=== PATIENT | female | born 1950 ===

== ENCOUNTER 2017-05-24 10:30 | Emergency (ER) | payer MEDICARE, OTHER ==
[~2017-05-24] VITALS: Ht 154.9 cm; Wt 63.5 kg
[~2017-05-24 10:30] MED LIST: ACETAMIN; ALBU90OI INH; ALPR.5 PO; AMOCLA500 PO; AZELASTINE137 MCG/0. NS; Abilify2 MG; CEFP500 PO; CHLO500; CHLO500 PO; CLON.5 PO; CYCL10; DIAZ2 PO; DIAZ5; DIPH50 PO; DUEXIS 800-26.1 EACH PO; ESTR2 PO; FEXPSEER PO; FURO20 PO; Flovent Diskus50 MCG; Furosemide20 MG; HYDHOMSY PO; INSLIS75I; LISHYD2025 PO; LOPE2C PO; LORA.5 PO; Mucinex600 MG PO; NEOPOLDEXS BOTHEYES; Naprosyn500 MG PO; Norco 5-325 Ta1 EACH PO; Norflex100 MG; OXYACE5T PO; Orphenadrine C100 MG PO; PRAM.125 PO; PROM25 PO; Prilosec Otc20 MG PO; QUET25 PO; RANI150 PO; TIZANIDINE HCL4 MG PO; TRAMAD; Toviaz8 MG; Toviaz8 MG PO; Trazodone HCl300 MG PO; VENL75ER; VENL75ER PO; Valium5 MG PO; Venlafaxine HCl75 MG PO; Zithromax250 MG PO
[2017-05-24 12:52] LABS: BASOPHILS ABSOLUTE AUTO 0.03 K/mm3 (0.00-0.23); BASOPHILS PERCENT AUTO 0 % (0-2); EOSINOPHILS ABSOLUTE AUTO 0.23 K/mm3 (0.00-0.68); EOSINOPHILS PERCENT AUTO 3 % (0-6); Hematocrit 41.1 % (33.0-51.0); IMMATURE GRAN ABSOLUTE AUTO 0.02 K/mm3 (0.00-0.10); IMMATURE GRAN PERCENT AUTO 0 % (0-1); LYMPHOCYTES ABSOLUTE AUTO 1.65 K/mm3 (0.84-5.20); LYMPHOCYTES PERCENT AUTO 23 % (21-46); MONOCYTES PERCENT AUTO 11 % (4-13); Mean Corpuscular HGB 31.5 pg (26.0-34.0); Mean Corpuscular HGB Conc 34.1 g/dL (31.5-36.5); Mean Corpuscular Volume 93 fL (80-100); NEUTROPHILS PERCENT AUTO 62 % (41-73); Platelet Count 259 K/mm3 (150-400); RDW Coefficient Variation 12.8 % (11.7-14.2); RDW Standard Deviation 43.5 fL (35.1-46.3); Red Blood Cell Count 4.44 M/mm3 (3.80-5.20); White Blood Cell Count 7.13 K/mm3 (4.00-11.30)
[2017-05-24 13:18] LABS: Alanine Aminotransfer (ALT/SGP 46 U/L (12-78); Albumin, Blood 3.5 g/dL (3.4-5.0); Albumin/Globulin Ratio 0.8 (0.8-1.8); Alk Phos 86 U/L (50-136); Anion Gap 5 mmol/L (6-16); Aspartate Aminotrans (AST/SGOT 31 U/L (12-37); Bilirubin, Total 0.3 mg/dL (0.1-1.0); Blood Urea Nitrogen 22 mg/dL (8-24); Bun/Creatinine Ratio 32.4 (12.0-20.0); CO2, Blood 30 mmol/L (21-32); Calcium, Blood 9.2 mg/dL (8.5-10.1); Chloride, Blood 100 mmol/L (98-108); Creatinine, Blood 0.68 mg/dL (0.40-1.00); Globulin, Blood 4.4 g/dL (2.2-4.0); Glomerular Filtration Rate >60 (60-); Glucose, Blood 111 mg/dL (70-99); Potassium, Blood 3.9 mmol/L (3.5-5.5); Sodium, Blood 135 mmol/L (136-145); Total Protein, Blood 7.9 g/dL (6.4-8.2)
== END 2017-05-24 12:35 | disposition left against medical advice (07) ==
LOC: ER 10:30
PROVIDERS: Physician Assistant
DX: Z53.21 Procedure and treatment not carried out due to patient leaving prior to being seen by health care provider (principal)
CPT/HCPCS: 80053; 85025; 99283

== ENCOUNTER 2018-05-25 13:56 | Emergency (ER) | payer MEDICARE, OTHER ==
[~2018-05-25] VITALS: Ht 152.4 cm; Wt 63.5 kg
[2018-05-25] MEDS ORDERED: CEPH500 PO (14:43)
== END 2018-05-25 14:49 | disposition home or self-care (01) ==
LOC: ER 13:56
DX: S61.412A Laceration without foreign body of left hand, initial encounter (principal); W26.0XXA Contact with knife, initial encounter; Z88.8 Allergy status to other drugs, medicaments and biological substances; Z79.899 Other long term (current) drug therapy
CPT/HCPCS: 90471; 90714; 99283

== ENCOUNTER 2018-06-10 15:24 | Emergency (ER) | payer MEDICARE, OTHER ==
[~2018-06-10] VITALS: Ht 157.5 cm; Wt 65.8 kg
[~2018-06-10 15:24] MED LIST changes: +CEPH500 PO
[2018-06-10] MEDS ORDERED: PRED20 PO (16:35)
[2018-06-10] MEDS ORDERED: IBUP800 PO (16:35)
== END 2018-06-10 16:50 | disposition home or self-care (01) ==
LOC: ER 15:24
DX: J02.9 Acute pharyngitis, unspecified (principal); J20.9 Acute bronchitis, unspecified; Z88.8 Allergy status to other drugs, medicaments and biological substances; Z79.899 Other long term (current) drug therapy
CPT/HCPCS: 71046; 87081; 87430; 96372; 99283-25; J1885

== ENCOUNTER 2018-08-28 22:18 | Emergency (ER) | payer MEDICARE, OTHER ==
[~2018-08-28] VITALS: Ht 157.5 cm; Wt 65.3 kg
[~2018-08-28 22:18] MED LIST changes: +IBUP800 PO; +PRED20 PO
[2018-08-28] MEDS ORDERED: Phentermine HCl30 MG (23:23)
[2018-08-28] MEDS ORDERED: DIAZ5 (23:30)
[2018-08-28] MEDS ORDERED: PRAMIPEXOLE D0.25 MG (23:31)
[2018-08-28] MEDS ORDERED: BUME1 (23:31)
[2018-08-28] MEDS ORDERED: IBUP600 PO (23:34)
== END 2018-08-28 23:40 | disposition home or self-care (01) ==
LOC: ER 22:18
DX: S09.90XA Unspecified injury of head, initial encounter (principal); S60.212A Contusion of left wrist, initial encounter; Z88.6 Allergy status to analgesic agent; Z88.8 Allergy status to other drugs, medicaments and biological substances; Z91.048 Other nonmedicinal substance allergy status; Z79.52 Long term (current) use of systemic steroids; W22.8XXA Striking against or struck by other objects, initial encounter
CPT/HCPCS: 29125; 73110; 99283-25; L3917

== ENCOUNTER 2019-04-03 18:55 | Observation (INO) | payer MEDICARE, OTHER ==
[~2019-04-03] VITALS: Ht 157.5 cm; Wt 65.6 kg
[~2019-04-03 18:55] MED LIST changes: +BUME1; +IBUP600 PO; +PRAMIPEXOLE D0.25 MG; +Phentermine HCl30 MG; -Toviaz8 MG
[2019-04-03 19:25] LABS: Calcium, Ionized (POC) 0.87 mmol/L (1.10-1.46); Chloride (POC) 104 mmol/L (98-108); Creatinine (POC) 0.4 mg/dL (0.6-1.0); Glucose (ISTAT POC) 79 mg/dL (70-99); Hemoglobin (POC) 13.9 g/dL (12.0-16.0); Potassium (POC) 5.9 mmol/L (3.5-5.5); Sodium (POC) 133 mmol/L (135-148); Total CO2 (POC) 24 mmol/L (21-32)
[2019-04-03 19:31] LABS: BASOPHILS ABSOLUTE AUTO 0.07 K/mm3 (0.00-0.23); BASOPHILS PERCENT AUTO 1 % (0-2); EOSINOPHILS ABSOLUTE AUTO 0.24 K/mm3 (0.00-0.68); EOSINOPHILS PERCENT AUTO 2 % (0-6); Hemoglobin 14.6 g/dL (11.5-16.0); IMMATURE GRAN ABSOLUTE AUTO 0.04 K/mm3 (0.00-0.10); IMMATURE GRAN PERCENT AUTO 0 % (0-1); LYMPHOCYTES ABSOLUTE AUTO 2.19 K/mm3 (0.84-5.20); LYMPHOCYTES PERCENT AUTO 20 % (21-46); MONOCYTES ABSOLUTE AUTO 1.14 K/mm3 (0.16-1.47); MONOCYTES PERCENT AUTO 10 % (4-13); Mean Corpuscular HGB 30.7 pg (26.0-34.0); Mean Corpuscular HGB Conc 33.2 g/dL (31.5-36.5); Mean Corpuscular Volume 92 fL (80-100); Mean Platelet Volume 9.9 fL (9.1-12.4); NEUTROPHILS ABSOLUTE AUTO 7.48 K/mm3 (1.96-9.15); NEUTROPHILS PERCENT AUTO 67 % (41-73); Platelet Count 258 K/mm3 (150-400); RDW Coefficient Variation 12.4 % (11.7-14.2); RDW Standard Deviation 42.5 fL (35.1-46.3); Red Blood Cell Count 4.76 M/mm3 (3.80-5.20); White Blood Cell Count 11.16 K/mm3 (4.00-11.30)
[2019-04-03 19:35] LABS: Calcium, Ionized (POC) 1.13 mmol/L (1.10-1.46); Chloride (POC) 97 mmol/L (98-108); Creatinine (POC) 0.7 mg/dL (0.6-1.0); Glucose (ISTAT POC) 92 mg/dL (70-99); Potassium (POC) 4.7 mmol/L (3.5-5.5); Sodium (POC) 133 mmol/L (135-148); Total CO2 (POC) 30 mmol/L (21-32)
[2019-04-03 19:49] LABS: Alanine Aminotransfer (ALT/SGP 52 U/L (12-78); Albumin, Blood 3.7 g/dL (3.4-5.0); Albumin/Globulin Ratio 0.9 (0.8-1.8); Alk Phos 84 U/L (50-136); Anion Gap 6 mmol/L (6-16); Aspartate Aminotrans (AST/SGOT 34 U/L (12-37); Bilirubin, Total 0.3 mg/dL (0.1-1.0); Blood Urea Nitrogen 24 mg/dL (8-24); Bun/Creatinine Ratio 34.8 (12.0-20.0); CO2, Blood 28 mmol/L (21-32); Calcium, Blood 9.1 mg/dL (8.5-10.1); Chloride, Blood 98 mmol/L (98-108); Creatinine, Blood 0.69 mg/dL (0.40-1.00); Ethanol (Alcohol), Blood, Med <3 mg/dL; Globulin, Blood 4.1 g/dL (2.2-4.0); Glomerular Filtration Rate >60 (60-); Glucose, Blood 87 mg/dL (70-99); Potassium, Blood 4.5 mmol/L (3.5-5.5); Salicylate <1.7 mg/dL (2.8-20.0); Sodium, Blood 132 mmol/L (136-145); Total Protein, Blood 7.8 g/dL (6.4-8.2)
[2019-04-03] MEDS ORDERED: CLON.1 PO (19:52)
[2019-04-03] MEDS ORDERED: TEMA15 PO (19:53)
[2019-04-03] MEDS ORDERED: HYDPAM25 (19:53)
[2019-04-03 19:55] LABS: Acetaminophen, Random <2.0 ug/mL (10.0-30.0)
[2019-04-03 20:05] LABS: U Amphetamine Screen Not Detected; U Barbituate Screen Not Detected; U Benzodiazapine Screen DETECTED; U Buprenorphine Screen Not Detected; U Cannabinoids Screen Not Detected; U Cocaine Screen Not Detected; U Methadone Screen Not Detected; U Methamphetamine Screen Not Detected; U Opiates Screen Not Detected; U Oxycodone Screen Not Detected; U Phencyclidine Screen Not Detected; U Propoxyphene Screen Not Detected
[2019-04-03 20:32] LABS: Source, Urine Catheter
[2019-04-03 20:36] LABS: Bilirubin, Urine Neg (Neg); Blood, Urine Neg (Neg); Glucose Qualitative, Urine Neg (Neg); Ketones, Urine Neg (Neg); Leukocyte Esterase, Urine Neg (Neg); Nitrite, Urine Neg (Neg); Protein, Urine Neg (Neg); Specific Gravity, Urine 1.005 (1.003-1.022); Urobilinogen, Urine NORM (Normal)
[2019-04-03 20:42] LABS: Appearance, Urine Clear (Clear); Color, Urine Yellow (P-Yellow)
[2019-04-03] MEDS ORDERED: Mirapex0.25 MG PO (21:02)
[2019-04-03] MEDS ORDERED: VENLAFAXINE HCL75 MG PO (21:02)
[2019-04-03] MEDS ORDERED: FUROSEMIDE20 MG PO (21:03)
[2019-04-03] MEDS ORDERED: HYDHCL25 PO (21:03)
[2019-04-04 01:09] LABS: Anion Gap 5 mmol/L (6-16); Blood Urea Nitrogen 17 mg/dL (8-24); Bun/Creatinine Ratio 27.8 (12.0-20.0); CO2, Blood 26 mmol/L (21-32); Calcium, Blood 8.1 mg/dL (8.5-10.1); Chloride, Blood 107 mmol/L (98-108); Creatinine, Blood 0.61 mg/dL (0.40-1.00); Glomerular Filtration Rate >60 (60-); Glucose, Blood 93 mg/dL (70-99); Potassium, Blood 3.6 mmol/L (3.5-5.5); Sodium, Blood 138 mmol/L (136-145)
--- NOTE | 2019-04-04 01:53 | NUR ---
ADMIT: PT UP TO ROOM FROM ED. PT SOMNOLENT AT ARRIVAL BUT ABLE TO WAKE FOR SHORT PERIODS TO ANSWER QUESTIONS. LUNG SOUNDS SLIGHTLY WHEEZY. SATTING >90% ON SL NC. NSR, HYPERTENSIVE WITH SBP IN THE 150S. HR IN THE 70S. BEDOLLA IS IN PLACE DRAINING CLEAR YELLOW URINE. 20G TO L HAND AND 20G IN R WRIST. R WRIST IV INFUSING NS AT 200ML/HR/. L HAND IS SL. PT IS CURRENTLY RESTING AND IS ON A 1:1 WITH A SITTER.
[2019-04-04 05:33] LABS: Anion Gap 5 mmol/L (6-16); Blood Urea Nitrogen 14 mg/dL (8-24); Bun/Creatinine Ratio 21.9 (12.0-20.0); CO2, Blood 26 mmol/L (21-32); Calcium, Blood 8.1 mg/dL (8.5-10.1); Chloride, Blood 108 mmol/L (98-108); Creatinine, Blood 0.64 mg/dL (0.40-1.00); Glomerular Filtration Rate >60 (60-); Glucose, Blood 95 mg/dL (70-99); Magnesium, Blood 1.8 mg/dL (1.6-2.4); Potassium, Blood 3.9 mmol/L (3.5-5.5); Sodium, Blood 139 mmol/L (136-145)
--- NOTE | 2019-04-04 06:21 | NUR ---
SHIFT SUMMARY: PT SOMNOLENT. WILL WAKE TO NAME. LUNG SOUNDS WHEEZY SPO2 >90% ON 2L NC. PT HYPERTENSIVE WITH SBP IN THE 150S HR 60-70S, IN SR. BEDOLLA IN PLACE DRAINING CLEAR YELLOW FLUID. 20G IVS TO L HAND AND R WRIST. NS INFUSING AT 200MLS/HR. BOWEL TONES X 4. NO BM THIS SHIFT. SITTER WITH PT ON 1:1.
--- NOTE | 2019-04-04 07:50 | NUR ---
ASSUMED CARE / DR SPENCER: REPORT RECEIVED FROM LINDA De Leon RN & GEOVANNA Lai RN. ASSUMED CARE OF THIS PT AT APPROX 0700. ON ASSESSMENT, THE PT IS RESTING QUIETLY. SHE AWAKENS EASILY TO VERBAL STIMULI & ANSWERS QUESTIONS APPROPRIATELY. SHE IS VERY FORGETFUL & HAVING A HARD TIME REMEMBERING THINGS SUCH HER HUSBANDS PHONE NUMBER. PT ON 2L NC W/ O2 SATS > 92%. MONITOR SHOWS SR W/ HR 60s, BP STABLE. NO GI/ COMPLAINTS, BEDOLLA PATENT/ DRAINING. SKIN OVERALL CDI. PT CONTINUES TO EXPRESS FEELINGS OF SADNESS & DESPAIR THIS MORNING, 1:1 SITTER IS AT BEDSIDE. PROVIDER IN ROOM TO SEE PT. HE STS THAT IF DR TORRES CANNOT SEE THE PT TODAY, WE SHOULD CONSULT TELEPSYCH INSTEAD. DIET ORDERS PLACED, NO OTHER CHANGES AT THIS TIME. WILL CONTINUE TO MONITOR & UPDATE NEEDED.
--- NOTE | 2019-04-04 08:55 | NUR ---
SUICIDAL IDEATION: THE PT IS STATING THAT SHE WANTS TO GO HOME, IT IS DISCUSSED THAT SHE WILL NEED TO STAY UNTIL DR TORRES HAS AT LEAST SEEN HER. SI IS DICUSSED & THE PT STS THAT SHE FEELS NO SUICIDAL IDEATION AT THIS TIME, BUT THEN STS "I REALLY THOUGHT I WOULD BE RIGHT NOW, I WISH I WAS." 1:1 SITTER REMAINS AT BEDSIDE. WILL CONTINUE TO MONITOR & UPDATE NEEDED.
--- NOTE | 2019-04-04 10:24 | NUR ---
SAFETY PLAN / POISON CONTROL: KOMAL AT BEDSIDE COMPLETING SAFETY PLAN W/ PT CURRENTLY. ALFRED RN FROM POISON CONTROL HAS CALLED FOR UPDATE REGARDING THIS PT. THEY HAVE BEEN PROVIDED W/ REQUESTED INFO. SHE STS THAT THE PT IS MEDICALLY CLEARED FROM THEIR STANDPOINT & THAT THEY WILL BE CLOSING HER CHART. ANY COMPLICATIONS THAT WERE LIKLEY TO OCCUR SHOULD HAVE HAPPENED WITHIN 8-12 HRS AFTER MED INGESTION & WE ARE NOW OUT OF THAT TIME FRAME INCIDENT OCCURED AT 1730 YESTERDAY PER . WILL NOTIFY PROVIDER & UPDATE NEEDED.
--- NOTE | 2019-04-04 10:53 | NUR ---
DR SPENCER: RETURN CALL FROM PROVIDER, INFORMED HIM OF POISON CONTROL's INPUT REGARDING PT BEING CLEARED FROM MEDICAL STANDPOINT. HE STS OKAY TO MAKE MED STATUS, ORDERS PLACED. WILL CONTINUE TO MONITOR & UPDATE NEEDED.
--- NOTE | 2019-04-04 11:25 | NUR ---
ASSUMED CARE RECEIVED REPORT FROM SOTO THIBODEAUX. PT IS IN HIGH RISK SUICIDE PRECAUTIONS WITH A SITTER. CURRENTLY DR NARANJO IS IN ROOM ALONE WITH PATIENT DOING HIS EVAL.
--- NOTE | 2019-04-04 11:59 | NUR ---
Safety Plan complete. Met with patient in ICU 9. Pleasant and able to engage in conversation. She presented somewhat confused as to what had happened, but was able to engage more as interview progressed. 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 She reports she has been seen for depression for past 8 years since her 19y/o grandson was killed i car accident. she has not been "so far down in the barrell" than she was yesterday. She felt 'like a failure". 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 She drinks 3-4 Ensure per day as "recommended by Dr. Randall". She reports seeing a psychiatrist, Dr. Cesar Huffman--but describes him more as a therapist. She has standing appoinment every 2 weeks. Has had had several losses recntly--dog of 13 yers put to sleep month ago or so, interaction with her daughter "hurt her feelings" at the [employer] parade. She felt she had dissappointed her yesterday, which prompted her to take pills. She reports no previous suicid attempts. She states her taking the pills was dumb. She has called Dr. Huffman in the past when she has had emergency emotional issues, but fdid not know why she did not this time. She was able to identify positives in her life and engage in the safety plan She was informed she is on involuntary hold, and would likely be seen by psychiatrist, Dr. Garnett. Marian Velásquez M.Ed., [facility]
--- NOTE | 2019-04-04 12:26 | NUR ---
MARCELLA INFORMED ME THAT HE THINKS HE WOULD LIKE HER TO STAY IN THE HOSPITAL ONE MORE DAY TO FINISH OUT HER HOLD, BUT DOES NOT BELIEVE SHE IS ACTIVELY SUICIDAL. HE CHANGED HER TO LOW RISK, AND TO BE ON CENTRAL MONITORING. HE ALSO STATED THAT HE WOULD DISCUSS HER MED REC WITH DR SPENCER.
--- NOTE | 2019-04-04 13:37 | NUR ---
DICONTINUED BEDOLLA CATHETER @ 0617
--- NOTE | 2019-04-04 15:44 | NUR ---
SHIFT SUMMARY PT LEFT ICU AT 1543 TO MEDICAL FLOOR ROOM 346. SHE LEFT ALERT AND ORIENTED X 3. SHE HAD STABLE VITALS. SHE WAS ON 2L NC, BECAUSE SHE WAS JUST ASLEEP PRIOR TO TRANSFER. SHE HAS BEEN VOIDING ADEQUETLY. PT COMPLAINS OF NO PAIN OR DISCOMFORT SINCE LEG CRAMPS, THAT WERE TREATED WITH MAGNESIUM OXIDE.
--- NOTE | 2019-04-04 17:34 | NUR ---
SHIFT SUMMARY PT A TRANSFER FROM ICU THIS EVENING. PT IS ALERT AND ORIENTED TO ROOM AND CALL LIGHT. PT REQUESTING MEDICATION FOR OVER ACTIVE BLADDER. THIS RN TALKED WITH DR. SPENCER AND DITROPAN WAS ORDERED. PT HAS NO FURTHER COMPLAINTS. PT IS CALM, FRIENDLY, BUT VERY IMPULSIVE AND DOES NOT CALL WHEN NEEDING TO GET UP. NO ACUTE CHANGES AT THIS TIME. CALL LIGHT IN REACH. BED ALARM ON FOR FALL RISK SAFETY. WILL CONTINUE TO MONITOR AND REPORT TO ONCOMING RN.
--- NOTE | 2019-04-05 05:39 | NUR ---
SHIFT SUMMARY PT HAS RESTED FOR A GOOD MAJORITY OF THE SHIFT. DITROPIN GIVEN HS FOR PT URGENCY. PT HAS URGENCY, FREQUENCY, AND INCONTINENCE. ATTENDS NOW IN PLACE. SHE AMBULATES WELL TO THE BSC WITH SBA. PT A/OX4, BUT FORGETFUL AND CAN BE IMPULSIVE. BED ALARM IN PLACE FOR SAFETY. PT ON LOW RISK SI PRECAUTIONS AT THIS TIME, ON CAMERA. SHE DENIES SUICIDAL IDEATION THIS SHIFT. NO ACUTE CHANGES TO REPORT. WILL CONTINUE TO MONITOR AND REPORT TO ONCOMING RN.
--- NOTE | 2019-04-05 07:44 | NUR ---
SHE IS AWAKENED FOR ASSESSMENT. SHE DENIES ANY SUICIDAL THOUGHTS DURING THE NIGHT OR THIS MORNING. SHE IS SLEEPY AND CALM. ANSWERS THAT HER APPETITE WAS GOOD AT [employer] LAST NIGHT BUT DOESN'T KNOW ABOUT THIS MORNING YET. DENIES PAIN OR NUMBNESS ANYWHERE BUT SAYS SHE GETS LEG CRAMPS SOMETIMES.
--- NOTE | 2019-04-05 13:33 | NUR ---
Visited patient. She and have set up appoinment with her therapist Dr. Huffman immediately upon DC from hospital
[2019-04-05] MEDS ORDERED: QUET25 PO (14:17)
--- NOTE | 2019-04-05 15:49 | NUR ---
DISCHARGED TO HOME WITH HER AT 1508. INSTRUCTIONS WERE GIVEN TO HER IN THE PRESENCE OF HER . SHE HAS HER BELONGINGS. REMOVED THE SUICIDAL PRECAUTIONS JUST BEFORE 1130 THIS MORNING. CAMERA WAS TURNED OFF SOON AFTER. SHE HAD BEEN UPSET ABOUT THE LOSS OF HER MOTHER AND HER GRANDSON. SHE SAYS SHE KNOWS NOW IT IS NOT HER TIME TO . SHE IS HAPPY TO GO HOME AND HER IS HAPPY TO HAVE HER. HER PSYCHOLOGIST SID MAKI CALLED ME BACK WITH THE SOONEST APPT. HE HAS, NEXT MONDAY. SHE HAS THE INFOIN HER DC INSTRUCTIONS.
== END 2019-04-05 15:08 | disposition home or self-care (01) ==
LOC: ER 18:55 → ICUW 18:56 → MEDS 18:56 → ERHOLD 18:56 → ICUW 23:54 → MEDS 04-04 15:46
PROVIDERS: Physician Assistant; ADMIT Hospitalist
DX: T42.4X2A Poisoning by benzodiazepines, intentional self-harm, initial encounter (principal); G92 Toxic encephalopathy; F33.3 Major depressive disorder, recurrent, severe with psychotic symptoms; F41.9 Anxiety disorder, unspecified; E87.1 Hypo-osmolality and hyponatremia; E87.5 Hyperkalemia; Z88.4 Allergy status to anesthetic agent; Z88.6 Allergy status to analgesic agent; Z88.8 Allergy status to other drugs, medicaments and biological substances; Z91.041 Radiographic dye allergy status; Z79.899 Other long term (current) drug therapy; Z90.710 Acquired absence of both cervix and uterus; Y92.019 Unspecified place in single-family (private) house as the place of occurrence of the external cause
CPT/HCPCS: 36415; 51702; 80047; 80048; 80053; 81003; 83735; 85014; 85025; 93005; 93010; 96360-59; 96361; 96361-59; 96372; 99285-25; A9270; G0378; G0480; J1650; J7030

== ENCOUNTER 2019-11-04 11:48 | Inpatient (IN) | payer MEDICARE, OTHER ==
[~2019-11-04] VITALS: Ht 157.5 cm; Wt 72.5 kg
[~2019-11-04 11:48] MED LIST changes: +CLON.1 PO; +FUROSEMIDE20 MG PO; +HYDHCL25 PO; +HYDPAM25; +Mirapex0.25 MG PO; +TEMA15 PO; +VENLAFAXINE HCL75 MG PO
[2019-11-04 12:55] LABS: BASOPHILS ABSOLUTE AUTO 0.05 K/mm3 (0.00-0.23); BASOPHILS PERCENT AUTO 0 % (0-2); EOSINOPHILS ABSOLUTE AUTO 0.07 K/mm3 (0.00-0.68); EOSINOPHILS PERCENT AUTO 1 % (0-6); Hemoglobin 14.4 g/dL (11.5-16.0); IMMATURE GRAN ABSOLUTE AUTO 0.09 K/mm3 (0.00-0.10); IMMATURE GRAN PERCENT AUTO 1 % (0-1); LYMPHOCYTES ABSOLUTE AUTO 0.91 K/mm3 (0.84-5.20); LYMPHOCYTES PERCENT AUTO 6 % (21-46); MONOCYTES ABSOLUTE AUTO 1.48 K/mm3 (0.16-1.47); MONOCYTES PERCENT AUTO 10 % (4-13); Mean Corpuscular HGB 30.8 pg (26.0-34.0); Mean Corpuscular HGB Conc 34.3 g/dL (31.5-36.5); Mean Corpuscular Volume 90 fL (80-100); Mean Platelet Volume 9.8 fL (9.1-12.4); NEUTROPHILS ABSOLUTE AUTO 12.34 K/mm3 (1.96-9.15); NEUTROPHILS PERCENT AUTO 83 % (41-73); Platelet Count 202 K/mm3 (150-400); RDW Coefficient Variation 12.5 % (11.7-14.2); Red Blood Cell Count 4.67 M/mm3 (3.80-5.20); White Blood Cell Count 14.94 K/mm3 (4.00-11.30)
[2019-11-04 13:15] LABS: Alanine Aminotransfer (ALT/SGP 32 U/L (12-78); Albumin, Blood 3.6 g/dL (3.4-5.0); Albumin/Globulin Ratio 0.8 (0.8-1.8); Alk Phos 103 U/L (50-136); Anion Gap 5 mmol/L (6-16); Aspartate Aminotrans (AST/SGOT 27 U/L (12-37); Bilirubin, Total 0.6 mg/dL (0.1-1.0); Blood Urea Nitrogen 13 mg/dL (8-24); Bun/Creatinine Ratio 21.9 (12.0-20.0); CO2, Blood 27 mmol/L (21-32); Calcium, Blood 8.6 mg/dL (8.5-10.1); Chloride, Blood 93 mmol/L (98-108); Creatinine, Blood 0.59 mg/dL (0.40-1.00); Globulin, Blood 4.8 g/dL (2.2-4.0); Glomerular Filtration Rate >60 (60-); Glucose, Blood 130 mg/dL (70-99); Potassium, Blood 4.2 mmol/L (3.5-5.5); Sodium, Blood 125 mmol/L (136-145); Total Protein, Blood 8.4 g/dL (6.4-8.2); Troponin I 0.062 ng/mL (0.000-0.040)
[2019-11-04] MEDS ORDERED: ALLEGRA-D 12 H1 EACH PO (13:43)
[2019-11-04] MEDS ORDERED: HYDHCL25 PO (13:43)
[2019-11-04] MEDS ORDERED: CLON.1 PO (13:43)
[2019-11-04] MEDS ORDERED: VENLAFAXINE ER 75MG (13:43)
[2019-11-04] MEDS ORDERED: Diethylpropion25 MG PO (13:44)
[2019-11-04] MEDS ORDERED: PRAMIPEXOLE D0.25 M1 PO (13:44)
[2019-11-04] MEDS ORDERED: VENL75ER PO (15:33)
--- NOTE | 2019-11-04 16:49 | NUR ---
Echocardiogram completed.
[2019-11-04 17:18] LABS: Source, Urine Clean Catch
[2019-11-04 17:22] LABS: Appearance, Urine Clear (Clear); Bilirubin, Urine Neg (Neg); Blood, Urine Neg (Neg); Color, Urine Yellow (P-Yellow); Glucose Qualitative, Urine Neg (Neg); Ketones, Urine 1+ (Neg); Leukocyte Esterase, Urine Neg (Neg); Nitrite, Urine Neg (Neg); Protein, Urine 1+ (Neg); Urobilinogen, Urine NORM (Normal)
--- NOTE | 2019-11-04 23:36 | NUR ---
PROVIDER CALLED SOLOMON CERDA REGARDING PT STATING CHEST TIGHTNESS AND DIFFICULTY BREATHING. STATES HAVING HAD ALBUTEROL TREATMENTS IN THE PAST MULTIPLE TIMES. PROVIDER ORDERES Q2PRN ALBUTEROL UPDRAFTS. RT TO ROOM TO ADMINISTER.
[2019-11-05 01:13] LABS: BASOPHILS ABSOLUTE AUTO 0.04 K/mm3 (0.00-0.23); BASOPHILS PERCENT AUTO 0 % (0-2); EOSINOPHILS PERCENT AUTO 1 % (0-6); Hematocrit 38.9 % (33.0-51.0); Hemoglobin 12.6 g/dL (11.5-16.0); IMMATURE GRAN ABSOLUTE AUTO 0.05 K/mm3 (0.00-0.10); IMMATURE GRAN PERCENT AUTO 0 % (0-1); LYMPHOCYTES ABSOLUTE AUTO 0.86 K/mm3 (0.84-5.20); LYMPHOCYTES PERCENT AUTO 7 % (21-46); MONOCYTES PERCENT AUTO 11 % (4-13); Mean Corpuscular HGB 30.2 pg (26.0-34.0); Mean Corpuscular HGB Conc 32.4 g/dL (31.5-36.5); Mean Corpuscular Volume 93 fL (80-100); Mean Platelet Volume 9.9 fL (9.1-12.4); NEUTROPHILS ABSOLUTE AUTO 10.78 K/mm3 (1.96-9.15); NEUTROPHILS PERCENT AUTO 81 % (41-73); Platelet Count 178 K/mm3 (150-400); RDW Standard Deviation 44.6 fL (35.1-46.3); Red Blood Cell Count 4.17 M/mm3 (3.80-5.20); White Blood Cell Count 13.23 K/mm3 (4.00-11.30)
[2019-11-05 01:32] LABS: Alanine Aminotransfer (ALT/SGP 32 U/L (12-78); Albumin, Blood 2.7 g/dL (3.4-5.0); Albumin/Globulin Ratio 0.7 (0.8-1.8); Alk Phos 89 U/L (50-136); Anion Gap 5 mmol/L (6-16); Aspartate Aminotrans (AST/SGOT 24 U/L (12-37); Bilirubin, Total 0.5 mg/dL (0.1-1.0); Blood Urea Nitrogen 12 mg/dL (8-24); Bun/Creatinine Ratio 20.5 (12.0-20.0); CO2, Blood 22 mmol/L (21-32); Chloride, Blood 105 mmol/L (98-108); Creatinine, Blood 0.58 mg/dL (0.40-1.00); Globulin, Blood 4.1 g/dL (2.2-4.0); Glomerular Filtration Rate >60 (60-); Glucose, Blood 132 mg/dL (70-99); Potassium, Blood 3.7 mmol/L (3.5-5.5); Sodium, Blood 132 mmol/L (136-145); Total Protein, Blood 6.8 g/dL (6.4-8.2)
--- NOTE | 2019-11-05 04:31 | NUR ---
END OF SHIFT SUMMARY NO ACUTE CHANGES THIS SHIFT. VSS. NS INFUSING, SEE EMAR. LUNGS WITH COARSE TO FINE CRACKLES BILATERALLY. PT HAS REQUIRED RT TREATMENT THIS SHIFT FOR "TIGHTNESS" IN LUNGS PER PT. PT HAS BEEN PREDOMINANTLY INDEPENDENT IN ROOM. HAS DENIED CP/PRESSURE T/O SHIFT. NSR 70'S. PT HAS BEEN RESTING QUIETLY IN ROOM T/O MOST OF SHIFT. WILL CONTIONUE TO MONITOR UNTIL SHIFT CHANGE.
--- NOTE | 2019-11-05 04:38 | NUR ---
EMAR NS FLUIDS RUNNING AT RATE ORDERED FOR MAINTENCE RATE AT BEGINNING OF SHIFT . IT WAS NOTED THAT DAY RN CHARTED THIS MEDICATION AT 1827 UNDER THE WO BOLUS ORDER WHEN IT SHOULD BE UNDER THE 100MLS/HR ORDER. THIS BAG FINISHED ON THIS SHIFT WAS NOT RAN AT A BOLUS RATE BUT AT THE CORRECT RATE ORDERED. SEE EMAR.
--- NOTE | 2019-11-05 07:58 | NUR ---
PT RESTING IN BED, REPORTS INCREASED ANXUETY AND REQUESTING ADDITIONAL ANXIETY MEDICATIONS. STATES INCREASED ANXIETY FROM "ALL THE EXTRA NOISE". TOOK PATIENT FOR WALK THIS AM. NOITIFIED DR CAMPOVERDE, NEW ORDERS ENTERED. WILL CONTINUE TO MONITOR.
[2019-11-05] MEDS ORDERED: ACET325 PO (11:42)
[2019-11-05] MEDS ORDERED: GUAI600T33 PO (11:43)
[2019-11-05] MEDS ORDERED: AZIT250 PO (11:43)
[2019-11-05] MEDS ORDERED: CEFD300 PO (11:45)
[2019-11-05] MEDS ORDERED: CVS PROBIOTIC1 EAC2 PO (11:45)
--- NOTE | 2019-11-05 12:37 | NUR ---
DISCHARGE NOTE PT A&Ox3; CALM AND COOPERATIVE WITH CARE. PT IND IN ROOM AND WALKED IN HALLS WITH THIS RN FOR ANXIETY RELEIFE THIS AM. PT DENIES PAIN, CHEST PAIN/PRESSURE, SOB, AND DIZZINESS. PT REPORTS NAUSEA, STATES IT MAY BE RELATED TO HER ANXIETY; PT ABLE TO EAT AFTER ATIVAN ADMINISTRATION. PT RECEIVING IV FLUIDS AND PO ANTIBIOTICS THIS AM. VSS. NO OTHER ACUTE CHANGES NOTED DURING SHIFT. PT EDUCATED ON DISCHARGE INSTURCTIONS, FOLLOW UP APPOINTMENTS AND MEDICATIONS. PRESCRIPTIONS CALLED TO [facility]. PT STABLE UPON DISCHARGE. PT AWAITING RIDE.
== END 2019-11-05 12:44 | disposition home or self-care (01) | DRG 871 ==
LOC: ER 11:48 → PCU 15:57
PROVIDERS: Nurse Practitioner Acute Care; Physician Assistant; ADMIT Hospitalist
DX: A41.9 Sepsis, unspecified organism (principal); J18.9 Pneumonia, unspecified organism; J96.01 Acute respiratory failure with hypoxia; E87.1 Hypo-osmolality and hyponatremia; F41.9 Anxiety disorder, unspecified; R79.89 Other specified abnormal findings of blood chemistry
CPT/HCPCS: 36415; 70450; 71045; 80053; 83735; 84295; 84484; 85025; 93005; 93010; 93306; 94640; 94760; 96361; 96365; 96375; 99285-25; A9270; J0456; J0696; J1650; J1885; J2765; J3010; J7030; J7050; U0002

== ENCOUNTER 2020-04-12 09:35 | Inpatient (IN) | payer MEDICARE, OTHER ==
[~2020-04-12] VITALS: Ht 157.5 cm; Wt 63.3 kg
[~2020-04-12 09:35] MED LIST changes: +ACET325 PO; +ALLEGRA-D 12 H1 EACH PO; +AZIT250 PO; +CEFD300 PO; +CVS PROBIOTIC1 EAC2 PO; +Diethylpropion25 MG PO; +GUAI600T33 PO; +PRAMIPEXOLE D0.25 M1 PO; +Prednisone20 MG PO; +VENLAFAXINE ER 75MG
[2020-04-12 10:21] LABS: BASOPHILS ABSOLUTE AUTO 0.05 K/mm3 (0.00-0.23); BASOPHILS PERCENT AUTO 0 % (0-2); EOSINOPHILS ABSOLUTE AUTO 0.12 K/mm3 (0.00-0.68); EOSINOPHILS PERCENT AUTO 1 % (0-6); Hematocrit 42.6 % (33.0-51.0); Hemoglobin 14.2 g/dL (11.5-16.0); IMMATURE GRAN ABSOLUTE AUTO 0.14 K/mm3 (0.00-0.10); IMMATURE GRAN PERCENT AUTO 1 % (0-1); LYMPHOCYTES ABSOLUTE AUTO 1.93 K/mm3 (0.84-5.20); LYMPHOCYTES PERCENT AUTO 13 % (21-46); MONOCYTES ABSOLUTE AUTO 1.45 K/mm3 (0.16-1.47); MONOCYTES PERCENT AUTO 10 % (4-13); Mean Corpuscular HGB 31.1 pg (26.0-34.0); Mean Corpuscular HGB Conc 33.3 g/dL (31.5-36.5); Mean Corpuscular Volume 93 fL (80-100); Mean Platelet Volume 9.3 fL (9.1-12.4); NEUTROPHILS ABSOLUTE AUTO 10.85 K/mm3 (1.96-9.15); NEUTROPHILS PERCENT AUTO 75 % (41-73); Platelet Count 320 K/mm3 (150-400); RDW Coefficient Variation 13.3 % (11.7-14.2); RDW Standard Deviation 45.4 fL (35.1-46.3); Red Blood Cell Count 4.57 M/mm3 (3.80-5.20); White Blood Cell Count 14.54 K/mm3 (4.00-11.30)
[2020-04-12 10:37] LABS: International Normalized Ratio 0.96; Prothrombin Time Results 10.3 Sec (9.7-11.5)
[2020-04-12 10:48] LABS: Troponin I <0.015 ng/mL (0.000-0.040)
[2020-04-12 10:49] LABS: Alanine Aminotransfer (ALT/SGP 34 U/L (12-78); Albumin, Blood 3.4 g/dL (3.4-5.0); Albumin/Globulin Ratio 0.8 (0.8-1.8); Alk Phos 76 U/L (50-136); Anion Gap 6 mmol/L (6-16); Aspartate Aminotrans (AST/SGOT 14 U/L (12-37); Bilirubin, Total 0.2 mg/dL (0.1-1.0); Blood Urea Nitrogen 26 mg/dL (8-24); Bun/Creatinine Ratio 40.1 (12.0-20.0); CO2, Blood 25 mmol/L (21-32); Chloride, Blood 104 mmol/L (98-108); Creatinine, Blood 0.65 mg/dL (0.40-1.00); Globulin, Blood 4.2 g/dL (2.2-4.0); Glomerular Filtration Rate >60 (60-); Glucose, Blood 124 mg/dL (70-99); Potassium, Blood 4.5 mmol/L (3.5-5.5); Sodium, Blood 135 mmol/L (136-145); Total Protein, Blood 7.6 g/dL (6.4-8.2)
[2020-04-12] MEDS ORDERED: METAXALONE800 M1 PO (14:22)
[2020-04-12] MEDS ORDERED: HYDHCL25 PO (14:22)
[2020-04-12] MEDS ORDERED: TRAZ50 PO (14:23)
[2020-04-12] MEDS ORDERED: VENL75ER PO (14:24)
[2020-04-12] MEDS ORDERED: PRINIVIL10 MG PO (14:24)
[2020-04-12] MEDS ORDERED: BUDESONIDE-FO10.2 G2 INH (14:26)
--- NOTE | 2020-04-12 16:43 | NUR ---
SHIFT SUMMARY PT ARRIVED TO ROOM FROM ER. SHE ATTEMPTED TO SIT UP TO TRANSFER TO THE BED BUT WAS UNABLE TO HOLD HERSELF UP. SHE WAS ASSISTED OVER TO THE BED BY NURSING STAFF. HER LEFT SIDE IS FLACCID AND SHE HAS LEFT SIDE FACIAL DROOP. SHE ALSO REPORTS DIFFICULTY SWALLOWING AND THERE IS A SPEECH EVAL PENDING. PT REPORTS THAT THE ONSET OF THESE SYMTOMS WAS AFTER HER FALL AT HOME THIS MORNING. SHE IS A/O AND ABLE TO ANSWER QUESTIONS APPROPRIATELY. HER WENT HOME FOR THE NIGHT AND SHE WOULD LIKE HIM TO BE UPDATED NEEDED. SHE IS ABLE TO MAKE HER NEEDS KNOWN AND HAS HER CALL LIGHT IN REACH.
[2020-04-13 00:25] LABS: Source, Urine Clean Catch
[2020-04-13 00:42] LABS: Bilirubin, Urine Neg (Neg); Blood, Urine Neg (Neg); Glucose Qualitative, Urine Neg (Neg); Ketones, Urine Neg (Neg); Leukocyte Esterase, Urine Neg (Neg); Nitrite, Urine Neg (Neg); Protein, Urine Neg (Neg); Urobilinogen, Urine NORM (Normal)
[2020-04-13 00:44] LABS: Appearance, Urine Clear (Clear); Color, Urine Yellow (P-Yellow)
--- NOTE | 2020-04-13 04:52 | NUR ---
SHIFT SUMMARY PT HAS BEEN ANXIOUS MOST OF THE NIGHT AWAKE AND UNABLE TO REST. SHE HAS HAD A HARD TIME GETTING COMFORTABLE IN THE BED AND HAS COMPLAINED OF RESTLESS LEG AND CRAMPS. PT HAS BEEN OFFERED A HEATING PAD, AND RECTAL TYLENOL FOR PAIN AND DISCOMFORT. SHE HAS BEEN REPOSITONED SEVERAL TIMES BY STAFF. TYLENOL HAS PROVIDED RELIEF FOR HER NECK PAIN, BUT PT HAS OFF AND ON LEG CRAMPS. PT HAS DENIED PAIN MEDICATION SEVERAL TIMES WHEN ASKED THIS SHIFT AFTER RECEIVING TYLENOL EARLIER IN THE SHIFT, AND STATES THAT SHE JUST WANTS TO GET OOB. PT REMAINS NPO PENDING SPEECH EVALUATION. LEFT SIDED WEAKNESS CONTINUES. LEFT FACIAL DROOP AND LEFT ARM IS FLACCID. PT IS ABLE TO MOVE HER LEFT LEG WITHOUT MUCH WEAKNESS. PT NEURO ASSESSMENT HAS REMAINED UNCHANGED THIS SHIFT, AND FROM PRIOR DAYSHIFT FRONT OFFICE COORDINATOR. PT WANTS TO AMBULATE BUT IS TOO WEAK AT THIS TIME, SO SHE REMAINS ON BEDREST PENDING PT/OT EVAL. VITALS ARE STABLE. TELE IN PLACE WITH NSR. BED IN LOWEST POSITION, CALL LIGHT WITHIN REACH, BED ALARM ON.
[2020-04-13 04:59] LABS: BASOPHILS ABSOLUTE AUTO 0.05 K/mm3 (0.00-0.23); BASOPHILS PERCENT AUTO 0 % (0-2); EOSINOPHILS ABSOLUTE AUTO 0.21 K/mm3 (0.00-0.68); EOSINOPHILS PERCENT AUTO 1 % (0-6); Hematocrit 46.2 % (33.0-51.0); Hemoglobin 15.1 g/dL (11.5-16.0); IMMATURE GRAN ABSOLUTE AUTO 0.12 K/mm3 (0.00-0.10); IMMATURE GRAN PERCENT AUTO 1 % (0-1); LYMPHOCYTES ABSOLUTE AUTO 2.11 K/mm3 (0.84-5.20); LYMPHOCYTES PERCENT AUTO 12 % (21-46); MONOCYTES ABSOLUTE AUTO 1.66 K/mm3 (0.16-1.47); MONOCYTES PERCENT AUTO 9 % (4-13); Mean Corpuscular HGB 30.3 pg (26.0-34.0); Mean Corpuscular HGB Conc 32.7 g/dL (31.5-36.5); Mean Corpuscular Volume 93 fL (80-100); Mean Platelet Volume 9.5 fL (9.1-12.4); NEUTROPHILS ABSOLUTE AUTO 13.66 K/mm3 (1.96-9.15); NEUTROPHILS PERCENT AUTO 77 % (41-73); Platelet Count 352 K/mm3 (150-400); RDW Coefficient Variation 13.2 % (11.7-14.2); RDW Standard Deviation 45.2 fL (35.1-46.3); Red Blood Cell Count 4.99 M/mm3 (3.80-5.20); White Blood Cell Count 17.81 K/mm3 (4.00-11.30)
[2020-04-13 05:31] LABS: Alanine Aminotransfer (ALT/SGP 34 U/L (12-78); Albumin, Blood 3.4 g/dL (3.4-5.0); Albumin/Globulin Ratio 0.8 (0.8-1.8); Alk Phos 81 U/L (50-136); Anion Gap 7 mmol/L (6-16); Aspartate Aminotrans (AST/SGOT 19 U/L (12-37); Bilirubin, Total 0.4 mg/dL (0.1-1.0); Blood Urea Nitrogen 20 mg/dL (8-24); Bun/Creatinine Ratio 33.8 (12.0-20.0); CO2, Blood 25 mmol/L (21-32); Calcium, Blood 9.1 mg/dL (8.5-10.1); Chloride, Blood 104 mmol/L (98-108); Creatinine, Blood 0.59 mg/dL (0.40-1.00); Globulin, Blood 4.5 g/dL (2.2-4.0); Glomerular Filtration Rate >60 (60-); Glucose, Blood 104 mg/dL (70-99); Sodium, Blood 136 mmol/L (136-145); Total Protein, Blood 7.9 g/dL (6.4-8.2); Troponin I <0.015 ng/mL (0.000-0.040)
--- NOTE | 2020-04-13 17:06 | NUR ---
SHIFT SUMMARY PT AWAKE THIS AM DURING SHIFT REPORT. ADMITTED FOR CVA AFTER FALL AT HOME. L SIDED WEAKNESS NOTED. PT [facility]ING TO GO TO [facility] AM; 2P MAX ASSIST TO STAND AND PIVOT TO BSC. L ARM FLACCID AND LLE VERY WEAK; GROSS MOTOR MOVEMENT WITH LEG. SP EVAL DONE THIS AM; PT DID NOT PASS COMPLETELY. SP TX REPORTED PT COUGHING AFTER 2 SPOONFULS OF LIQUID AND OR APPLESAUCE. SP EVAL TO BE DONE AGAIN IN AM. PT WAS DISAPPOINTED SHE WANTED TO BE ABLE TO DRINK WATER. PT HAS BEEN CONTINENT OF BOWEL AND BLADDER THRU OUT THE DAY. MEDICATED FOR C/O DANIELLE PAIN. PT STATED THAT SHE FELL ON HER BOTTOM AND SNAPPED HER NECK AT THAT TIME, ALMOST BITING HER TONGUE. PT HAS HAD MULTIPLE PHONE CALLS THRU OUT THE DAY AND TO VISIT THIS AM, LEAVING FOR LUNCH. DR WALSHTRATE IN TO SEE PT. NEW ORDERS RECEIVED. PT'S BP NOW COMING DOWN; PERMISSIVE HTN FOR 24 HRS. CALL LT IN REACH. ABLE TO MAKE NEEDS KNOWN. BED AND CHAIR ALARM ON FOR SAFETY.
--- NOTE | 2020-04-13 17:22 | NUR ---
Initial spiritual care note: Mrs. Bernard was tearful. She expressed despair with limitations from stroke. She feels loved and supported by spouse and family. She responded well to college and career counselor and encouragement. Highlighted progress she has already made. This appeared to bring hope, and she was brighter by end of conversation. Prayer provided. I will remain available.
--- NOTE | 2020-04-13 19:05 | NUR ---
ASSUMED CARE RECEIVED REPORT FROM MORELIA AVILA. ASSUMED CARE OF PT. PT ALERT, NO S/S ACUTE DISTRESS NOTED, RESPS E/U. DENIES NEEDS AT THIS TIME. CALL LIGHT, POSSESSIONS IN REACH, BED IN LOW POSITION WITH ALARMS ON. WCTM.
--- NOTE | 2020-04-13 23:39 | NUR ---
SPOKE TO DR. RACHEL REGARDING PT'S ANXIETY AND INABILITY TO SAFELY SWALLOW MEDS. ORDERS RECEIVED. WCTM.
--- NOTE | 2020-04-14 04:11 | NUR ---
SHIFT SUMMARY PT ASLEEP AT THIS TIME, NO S/S ACUTE DISTRESS NOTED, RESPS E/U. PT HAS BEEN ASKING FOR WATER MULTIPLE TIMES T/O NIGHT, PROVIDED WITH MOISTENED TOOTHETTES, PT TOLERATED WELL. PT ANXIOUS AT TIMES, MEDICATED WITH A ONE-TIME DOSE OF BENADRYL D/T INABILITY TO TAKE MEDS PO, EFFECTIVE RESULTS. PT AWAITING ST EVALUATION TODAYL. VS REVIEWED, BP'S STABLE. DENIES NEEDS AT THIS TIME. CALL LIGHT, POSSESSIONS IN REACH, BED IN LOW POSITION WITH ALARMS ON. WCTM, REPORT TO ONCOMING RN.
[2020-04-14 05:09] LABS: BASOPHILS ABSOLUTE AUTO 0.03 K/mm3 (0.00-0.23); BASOPHILS PERCENT AUTO 0 % (0-2); EOSINOPHILS ABSOLUTE AUTO 0.12 K/mm3 (0.00-0.68); EOSINOPHILS PERCENT AUTO 1 % (0-6); Hematocrit 46.2 % (33.0-51.0); Hemoglobin 15.4 g/dL (11.5-16.0); IMMATURE GRAN ABSOLUTE AUTO 0.09 K/mm3 (0.00-0.10); IMMATURE GRAN PERCENT AUTO 1 % (0-1); LYMPHOCYTES ABSOLUTE AUTO 2.09 K/mm3 (0.84-5.20); LYMPHOCYTES PERCENT AUTO 12 % (21-46); MONOCYTES ABSOLUTE AUTO 1.69 K/mm3 (0.16-1.47); MONOCYTES PERCENT AUTO 10 % (4-13); Mean Corpuscular HGB Conc 33.3 g/dL (31.5-36.5); Mean Corpuscular Volume 93 fL (80-100); Mean Platelet Volume 9.5 fL (9.1-12.4); NEUTROPHILS ABSOLUTE AUTO 13.03 K/mm3 (1.96-9.15); NEUTROPHILS PERCENT AUTO 76 % (41-73); Platelet Count 326 K/mm3 (150-400); RDW Coefficient Variation 13.1 % (11.7-14.2); RDW Standard Deviation 44.7 fL (35.1-46.3); Red Blood Cell Count 4.96 M/mm3 (3.80-5.20); White Blood Cell Count 17.05 K/mm3 (4.00-11.30)
--- NOTE | 2020-04-14 14:28 | NUR ---
SHIFT SUMMARY PT FINALLY ABLE TO SLEEP LAST NIGHT AND INTO THE MORNING. PT WOKE WITH CONTINUED IMPROVEMENT IN MOBILITY. CONTROLLED MOTOR SKILLS IN L LEG AND SOME CONTROL IN L ARM WITH MOVEMENT IN FINGERS. PT CONTINUES TO TRY AND WORK MUSCLES TO REGAIN MOBILITY. SP TX IN AGAIN THIS AM. PT MADE SOME IMPROVEMENT IN SWALLOWING WELL. CHANGED TO PUREE DIET WITH NECTAR THICK LIQUIDS. PT ABLE TO TAKE PO MEDS PER SPEECH DIRECTIONS. BP IMPROVED WELL; SEE CHART. PT UP TO BSC AND THEN RECLINER. PT GRATEFUL FOR THAT. PT ALSO LOOKING FORWARD TO PT/OT REHAB TO CONTINUE TO TRY AND RESUME MOTOR SKILLS AT DISCHARGE. IN TO VISIT AGAIN FOR A SHORT WHILE. PT ABLE TO WORK WITH PT/OT HERE TODAY, AND EAGER TO DO SO. CALL LT IN REACH. ABLE TO MAKE NEEDS KNOWN.
[2020-04-14 17:56] LABS: Source, Urine Clean Catch
[2020-04-14 18:02] LABS: Appearance, Urine Clear (Clear); Bilirubin, Urine Neg (Neg); Blood, Urine Neg (Neg); Color, Urine Yellow (P-Yellow); Glucose Qualitative, Urine Neg (Neg); Ketones, Urine 1+ (Neg); Leukocyte Esterase, Urine Neg (Neg); Nitrite, Urine Neg (Neg); Protein, Urine 1+ (Neg); Specific Gravity, Urine 1.025 (1.003-1.022); Urobilinogen, Urine NORM (Normal)
--- NOTE | 2020-04-14 18:48 | NUR ---
DR ARMSTRONG PLACED NEW ORDERS THIS EVENING. UA OBTAINED AND SENT. MELISSA FROM [facility] CALLED TO REPORT THE PT WILL BE TX'D TO THEIR FAUCILITY TOMORROW AT 10:00. PT WILL NEED RAPID COVID TEST PRIOR TO D/C AND D/C SUMMARY TO BE COMPLETED AND SENT WITH PT TO FAUCILITY. MESSAGE LEFT FOR GUIDANCE CONSULTANT DAVID GLASS WHO LATER RETURNED CALL THAT COVID TEST WOULD BE ORDERED AND D/C SUMMARY WOULD BE COMPLETED TO BE SENT WITH PT. BONE CHAR KILN TENDER, JADE ALVARADO.
--- NOTE | 2020-04-14 19:15 | NUR ---
ASSUMED CARE RECEIVED REPORT FROM MORELIA AVILA. ASSUMED CARE OF PT. RESTING COMFORTABLY AT THIS TIME, NO S/S ACUTE DISTRESS NOTED. RESPS E/U. DENIES NEEDS. CALL LIGHT, POSSESSIONS IN REACH, BED IN LOW POSITION WITH ALARMS ON. WCTM.
[2020-04-14 20:23] LABS: Influenza A, PCR Negative (NEGATIVE); Influenza B, PCR Negative (NEGATIVE); Resp Syncytial Virus, PCR Negative (NEGATIVE); SARS-Cov-2 (COVID-19) PCR, MMC Negative (NEGATIVE)
[2020-04-15 05:25] LABS: BASOPHILS ABSOLUTE AUTO 0.05 K/mm3 (0.00-0.23); BASOPHILS PERCENT AUTO 0 % (0-2); EOSINOPHILS ABSOLUTE AUTO 0.26 K/mm3 (0.00-0.68); EOSINOPHILS PERCENT AUTO 2 % (0-6); Hematocrit 44.1 % (33.0-51.0); Hemoglobin 14.5 g/dL (11.5-16.0); IMMATURE GRAN ABSOLUTE AUTO 0.09 K/mm3 (0.00-0.10); IMMATURE GRAN PERCENT AUTO 1 % (0-1); LYMPHOCYTES ABSOLUTE AUTO 2.15 K/mm3 (0.84-5.20); LYMPHOCYTES PERCENT AUTO 13 % (21-46); MONOCYTES ABSOLUTE AUTO 1.68 K/mm3 (0.16-1.47); MONOCYTES PERCENT AUTO 10 % (4-13); Mean Corpuscular HGB 30.9 pg (26.0-34.0); Mean Corpuscular HGB Conc 32.9 g/dL (31.5-36.5); Mean Corpuscular Volume 94 fL (80-100); Mean Platelet Volume 9.6 fL (9.1-12.4); NEUTROPHILS ABSOLUTE AUTO 12.07 K/mm3 (1.96-9.15); NEUTROPHILS PERCENT AUTO 74 % (41-73); Platelet Count 332 K/mm3 (150-400); RDW Coefficient Variation 13.5 % (11.7-14.2); RDW Standard Deviation 46.5 fL (35.1-46.3); Red Blood Cell Count 4.69 M/mm3 (3.80-5.20)
[2020-04-15 05:59] LABS: Anion Gap 6 mmol/L (6-16); Blood Urea Nitrogen 30 mg/dL (8-24); Bun/Creatinine Ratio 45.7 (12.0-20.0); CO2, Blood 23 mmol/L (21-32); Chloride, Blood 106 mmol/L (98-108); Creatinine, Blood 0.66 mg/dL (0.40-1.00); Glomerular Filtration Rate >60 (60-); Glucose, Blood 113 mg/dL (70-99); Potassium, Blood 4.3 mmol/L (3.5-5.5); Sodium, Blood 135 mmol/L (136-145)
--- NOTE | 2020-04-15 07:00 | NUR ---
SHIFT SUMMARY PT RESTING COMFORTABLY, NO S/S ACUTE DISTRESS NOTED, WAS MONITORED EVERY 1-2 HOURS WITH NEEDS MET. LT SIDE DEFICITS IMPROVING, PT TOLERATING PUREE DIET WITH NECTAR THICK LIQUIDS WELL, NO S/S ASPIRAITON. VS REVIEWED, BP'S STABLE. PENDING D/C TO REHAB TODAY. CALL LIGHT, POSSESSIONS IN REACH, BED IN LOW POSITION WITH ALARMS ON. REPORT GIVEN TO MORELIA REINOSO.
[2020-04-15] MEDS ORDERED: ACET325 PO (07:41)
[2020-04-15] MEDS ORDERED: ASPI81CH PO (07:42)
[2020-04-15] MEDS ORDERED: BISA10S PR (07:43)
[2020-04-15] MEDS ORDERED: ATOR80 PO (07:43)
[2020-04-15] MEDS ORDERED: FAMO20 PO (07:44)
[2020-04-15] MEDS ORDERED: LEVO750 PO (07:45)
[2020-04-15] MEDS ORDERED: ONDA4ODT MM (07:46)
[2020-04-15] MEDS ORDERED: VISBIOME PROBIOTIC PO (07:47)
--- NOTE | 2020-04-15 09:58 | NUR ---
DISCHARGE SUMMARY PT DISCHARGED TO [facility] VIA AMBULANCE. PT 2 PERSON ASSIST TO GET READY. IV'S AND TELE DC'D. INSTRUCTED NOT TO CALL REPORT BY EPIC ANESTHESIA ANALYST DUE TO THIS PARTICULAR FACILITY NOT NEEDING IT. ORAL MEDS GIVEN BEFORE DISCHARGE. TEMP TAKEN AND 98.1 BEFORE LEAVING.
== END 2020-04-15 09:39 | DRG 65 ==
LOC: ER 09:35 → MEDS 15:39
PROVIDERS: Emergency Medicine; ADMIT Family Medicine
DX: I63.231 Cerebral infarction due to unspecified occlusion or stenosis of right carotid arteries (principal); G81.94 Hemiplegia, unspecified affecting left nondominant side; R29.810 Facial weakness; I10 Essential (primary) hypertension; G25.81 Restless legs syndrome; Z20.828 Contact with and (suspected) exposure to other viral communicable diseases; N32.81 Overactive bladder; F41.8 Other specified anxiety disorders
CPT/HCPCS: 0241U; 36415; 70450; 70544; 70549; 71045; 80048; 80053; 81003; 84484; 85025; 85610; 85730; 92526; 92610; 93005; 93010; 94640; 94664; 94760; 97112; 97162; 97166; 97530; 97535; 99285-25; A9270; A9270-GY; A9579; J1200; J1650; J1956; J2405; J7030; Q3014